=== PATIENT | male | born 1965 | race Caucasian/White ===

== ENCOUNTER 2022-02-17 11:19 | Emergency (ER) | payer BC ==
[~2022-02-17 11:19] MED LIST: ALLO100T PO; AMLO1TAB99 PO; BENA10TA74 PO; DABI150C PO; HYDR-4384 PO; ONDA4TAB59 PO; PIOG15TA8 PO; SOTA80TA73 PO
== END 2022-02-17 13:11 | disposition left against medical advice (07) ==
LOC: ER 11:19
DX: M25.569 Pain in unspecified knee (principal); Z53.21 Procedure and treatment not carried out due to patient leaving prior to being seen by health care provider